=== PATIENT | female | born 1970 ===

== ENCOUNTER 2017-02-04 16:34 | Emergency (ER) | payer BC, OTHER ==
[2017-02-04 16:45] VITALS: BMI 33.3
--- NOTE | 2017-02-12 03:28 | OP ---
PROCEDURE DATE: 02/08/2017 PREOPERATIVE DIAGNOSES: 1. at term. 2. Previous section. 3. Gestational diabetes, on glyburide. 4. Multiparity and voluntary sterilization. 5. Known reassuring tracing. 6. Decreased movement. POSTOPERATIVE DIAGNOSES: 1. at term. 2. Previous section. 3. Gestational diabetes, on glyburide. 4. Multiparity and voluntary sterilization. 5. Known reassuring tracing. 6. Decreased movement. PROCEDURE PERFORMED: 1. Repeat low-transverse segment section. 2. Bilateral tubal sterilization using a modified [place] procedure. SURGEON: Adrian Jacome MD. ETHICS INSTRUCTOR: Dr. Miguel A Bowman, who was there for the entire duration of the case. Assistance needing in positioning the patient, open up the abdomen, delivery of the baby and closure of the abdomen. TYPE OF ANESTHESIA: Spinal by Dr. Alexander. FINDINGS: 1. Delivered a living baby boy, baby appears term, baby cries spontaneously, pediatrist in attendance. score of 9 and 9. 2. Amniotic fluid, clear. 3. Placenta complete and intact. 4. Both tubes and ovaries appeared grossly within normal limits to inspection bilaterally. 5. Collapsed cyst of Morgagni on the right side. 6. Bilateral tubal sterilization performed using modified Amrit procedure. ESTIMATED BLOOD LOSS: 500 mL. DRAINS USED: None. REPLACEMENTS USED: None. DESCRIPTION OF PROCEDURE: The patient was taken to the operating room and placed on the operating table in a supine position where an indwelling Fernandez catheter in the bladder draining clear fluid. At this time, spinal anesthesia was then induced and the patient was then replaced in a supine position. Venodyne boots were applied to both legs. The abdomen was then draped and prepped in the usual sterile manner. At this time, anesthesia was tested and found to be well secured, and an incision was then made using sharp dissection on the edges of the previous incision. Old scar was then removed and the incision was then extended to the subcutaneous tissue also using sharp dissection. Fascia was then identified and was then entered, and the incision of the fascia was then extended superiorly and inferiorly under direct visualization. Peritoneum was then identified and then slit at the midline and after being retracted superiorly using two Krissy clamps. Incision of the peritoneum was then extended superiorly and inferiorly under direct visualization. Bladder flap was then placed to retract the bladder inferiorly and the localized segment of the uterus was then identified. The visceral peritoneum covering this area was then entered using sharp dissection. Using blunt dissection, a bladder flap was then created and retracted inferiorly using the same bladder flap retractor. An incision was then made in the localized segment of the uterus for entering the uterine cavity. Clear fluid noted to be present. The incision was then extended laterally on each direction using bandage scissors. Using the manual scooping procedure, living baby boy was then delivered. The baby was immediately aspirated using the bulb suction. Umbilicus was then doubly clamped, cut and the baby handed to the pediatric personnel who was standing by. Samples of cord blood were then obtained and the placenta was then delivered complete and intact. The uterus was then exteriorized to provide better visualization. The uterine cavity was then thoroughly cleaned using moist lap pads and the uterine incision was then secured using multiple declamps. The uterine incision was then approximated using 0 Vicryl suture in a continuous interlocking manner. A second layer was also applied using 0 Vicryl suture in a continuous manner. Hemostasis was checked and found to be well secured. The bladder flap was then approximated using interrupted 2-0 Vicryl suture, all operative area checked, hemostatically secured. The patient was then asked after she had previously requested towards sterilization. Both tubes and ovaries have been grossly within normal limits to the infection. The patient consented again verbally. A small collapsed cyst of Morgagni noted to be present on the right side. The right fallopian tube was then grasped using Nelson clamp at the ampullary region and retracted superiorly. A 2-0 chromic was then passed through the mesosalpinx and the section of the tube was then ligated. A 2-0 chromic free tie was then placed underneath the ligature and the ligated segment of the tube was then resected and sent to pathology for appropriate pathological evaluation. The collapsed section of the tube had been ligated also and was resected and sent to pathology. The same procedure was then performed on the contralateral side without any complications. Following bilateral tubal sterilization, all operative areas checked, hemostatically secured and the free amniotic fluid and blood were evacuated from the pelvic cavity. Pelvic cavity was then irrigated using saline solution. Uterus then allowed to be tracked back into its original position. All operative area checked, hemostatically secured and the peritoneum was then closed using 0 Vicryl suture in a continuous manner. The fascia was then identified and was then closed using 0 PDS suture in a continuous manner. Fascia was then checked and found to be free of defect. Subcutaneous tissue was then irrigated using saline solution and approximated using 7 interrupted 2-0 plane sutures. Skin was then approximated using skin roxana. The patient tolerated the procedure well. There were no complications. Sponge, instrument, and needle count correct x3. Clear fluid noted to be present in the Fernandez bag. Adrian Jacome MD
== END 2017-02-04 17:21 | disposition home or self-care (01) ==
LOC: H.EROB2 16:34
DX: O24.419 Gestational diabetes mellitus in pregnancy, unspecified control (principal); O09.523 Supervision of elderly multigravida, third trimester; Z3A.37 37 weeks gestation of pregnancy

== ENCOUNTER 2017-02-08 07:36 | Inpatient (IN) | payer BC, OTHER ==
[2017-02-08] MEDS ORDERED: cefOXitin Sodium 1 GM in Sodium Chloride 0.9% 100 ML IVPB ONE (08:20)
[2017-02-08] MEDS ORDERED: Lactated Ringer's 1,000 ML IV SCH (08:20)
[2017-02-08 08:22] VITALS: BMI 32.3
[2017-02-08] MEDS: Lactated Ringer's 2,000 ML IV ONE ×2 (08:30→09:30)
[2017-02-08 10:01] LABS: BASO % 0.4 % (0.0-2.0); EOS # 0.1 K/uL (0.0-0.7); HEMOGLOBIN 10.9 g/dL (12.0-16.0); LYMPH # 1.5 K/uL (1.0-4.3); LYMPH % 15.6 % (20.0-40.0); MEAN CORPUSCULAR HEMOGLOBIN 31.5 pg (27.0-31.0); MEAN CORPUSCULAR HGB CONC 33.9 g/dL (33.0-37.0); MEAN PLATELET VOLUME 11.3 fl (7.2-11.7); MONO # 0.8 K/uL (0.0-0.8); MONO % 8.2 % (0.0-10.0); NEUT % 74.8 % (50.0-75.0); RBC 3.47 Mil/uL (3.80-5.20); RED CELL DISTRIBUTION WIDTH 14.7 % (11.5-14.5); WHITE BLOOD COUNT 9.4 K/uL (4.8-10.8)
--- NOTE | 2017-02-08 10:08 | OBADHP ---
Datetime: 02/08/2017 10:02 IP Chief Complaint Other: gest Dm on glyburide Prev C/S IP Adm Impression Other: UC/ gest DM Admit Comment, IP Provider: Admit to unit and prepare for Rc/S Extremities - PN: Normal Abdomen - PN: Abnormal Back - PN: Normal Breast - PN: Normal Lungs - PN: Normal Heart - PN: Normal Thyroid - PN: Normal Neurologic - PN: Normal General - PN: Normal FHR - Baseline A Provider: 140's Membranes, Provider: Intact Comments, ACOG Physical Exam: abd soft gravid fundus at term, old pfnest scar ext no calf tenderness Gestation - Est Wks by US: 37 + wks IP Chief Complaint: Uterine contractions; Decreased movement; Other NICHD Variability Prov Fetus A: Minimal - Undetectable to <5bpm NICHD Accel Fetus A IP Provider: 10X10 NICHD Decel Fetus A IP Provider: Late Genitourinary Exam: Normal DTRs - PN: Normal EGA AdmitDate IP: 37.4 IP Adm Impression: Term, intrauterine IP Admit Plan: Admit to unit; Initiate Section protocol Datetime: 02/04/2017 17:20 Pelvic Type - PN: Adequate HEENT - PN: Normal Vital Signs Provider: Within Normal Limits FHR Category Provider Fetus A: Category I Dilatation, Provider: 0 Effacement, Provider: 0 Station, Provider: -4
[2017-02-08] MEDS ORDERED: Oxytocin 30 units/LR 500ML 30 U/500 ML BAG IV ONE (10:27)
[2017-02-08] MEDS ORDERED: Morphine 1 mg/ml preservative-free Inj(Duramorph) ONE (10:37)
--- NOTE | 2017-02-08 12:34 | OBDS ---
DELIVERY PERSONNEL Delivery Doctor: Alexus Jacome MD Scrub Nurse: Becca Roxane OBT [place] Operator: Tommy Del Rosario RN Anesthesiologist: Pat Alexander MD MATERNAL INFORMATION Delivery Anesthesia: Spinal Medications in Delivery: pitocin 30u/500LR Estimated Blood Loss (ml): 800cc Placenta Cultured: No Maternal Complications: None Other Maternal Complications: gest DM on glyburide/decreased fm/ nonreasuring tracing Provider Comments: see dictated surgeons note LABOR SUMMARY EDC: 02/25/2017 00:00 LABOR INFORMATION Reason for Induction: Not Applicable STAGES OF LABOR Stage 3 hrs: 0 Stage 3 min: 1 VAGINAL DELIVERY Sponge Count Correct: Yes Sharps Count Correct: Yes Count Comment: count correct x3 CSECTION DELIVERY Primary Indication: Repeat Elective Other Primary Indication: decresed movement Secondary Indication: Nonreassuring Status CSection Urgency: Elective CSection Incidence: Repeat Labor: Labor Elective: Elective CSection Incision: Lower Uterine Transverse Sterilization Procedure: [place] Uterine Closure: Double-layer closure BABY A INFORMATION Delivery Date/Time: 02/08/2017 11:32 Method of Delivery: Born in Route : No : N/A Forceps: N/A Vacuum Extraction: N/A Shoulder Dystocia : No SHOULDER DYSTOCIA BABY A Delivery Date/Time: 02/08/2017 11:32 PRESENTATION/POSITION BABY A Presentation: Cephalic PLACENTA INFORMATION BABY A Placenta Delivery Time : 02/08/2017 11:33 SCORES BABY A Heart Rate 1 min: >100 bpm Resp Effort 1 min: Good Cry Reflex Irritability 1 min: Cough or Sneeze or Pulls Away Muscle Tone 1 min: Active Motion Color 1 min: Body [place], Extremities Blue SCORE 1 MIN: 9 Heart Rate 5 min: >100 bpm Resp Effort 5 min: Good Cry Reflex Irritability 5 min: Cough or Sneeze or Pulls Away Muscle Tone 5 min: Active Motion Color 5 min: Body [place], Extremities Blue SCORE 5 MIN: 9 INFANT INFORMATION BABY A Gestational Age at Delivery: 37.4 Gestational Status: Term Outcome : Liveborn Condition : Stable Sex: Male IDENTIFICATION/MEDS BABY A ID Band Number: [id number] ID Band Location: Left Leg; Left Arm WEIGHT/LENGTH BABY A Birthweight (gms): 3285 Infant Weight (lb): 7 Infant Weight (oz): 4 CORD INFORMATION BABY A No. Cord Vessels: 3 Nuchal Cord : Around Neck x1, Loose Cord Blood Taken: Yes Infant Suction: Mouth ASSESSMENT BABY A Complications: None Physical Findings at Delivery: Within Normal Limits Infant Respirations: Appears Normal Group Reservations Coordinator/ALS Called : No Infant Care By: Transferred To: Nursery
[2017-02-08] MEDS ORDERED: Naloxone 0.4 mg/ml Inj (Adult) IVP PRN (12:38)
[2017-02-08] MEDS ORDERED: DiphenhydrAMINE 50 mg/ml Inj IVP PRN (12:38)
[2017-02-08] MEDS ORDERED: DiphenhydrAMINE 50 mg/ml Inj IVP STA (15:48)
[2017-02-08] MEDS: cefOXitin Sodium 1 GM in Sodium Chloride 0.9% 100 ML IVPB SCH ×2 (19:28→19:29)
[2017-02-09] MEDS: cefOXitin Sodium 1 GM in Sodium Chloride 0.9% 100 ML IVPB SCH (00:58)
[2017-02-09] MEDS: Oxycodone/Acetaminophen 5/325 mg Tab PO PRN ×5 (02:25→20:12)
[2017-02-09 08:02] LABS: HEMOGLOBIN 9.9 g/dL (12.0-16.0); MEAN CELL VOLUME 93.4 fl (81.0-99.0); MEAN CORPUSCULAR HEMOGLOBIN 30.7 pg (27.0-31.0); MEAN CORPUSCULAR HGB CONC 32.9 g/dL (33.0-37.0); RBC 3.23 Mil/uL (3.80-5.20); RED CELL DISTRIBUTION WIDTH 14.6 % (11.5-14.5); WHITE BLOOD COUNT 12.1 K/uL (4.8-10.8)
[2017-02-09 08:27] LABS: BLOOD UREA NITROGEN 5 mg/dl (7-17); CALCIUM 8.3 mg/dL (8.4-10.2); GFR AFRICAN-AMERICAN > 60; GFR NON-AFRICAN AMERICAN > 60
--- NOTE | 2017-02-09 08:31 | OBPPN ---
Datetime: 02/09/2017 08:25 PP Pain Prov: Abnormal PP Nausea Prov: Denies PP Flatus Prov: Yes PP BM Prov: No PP Breasts Prov: Normal PP Heart Prov: Normal PP Lungs Prov: Normal PP Abdomen/Uterus Prov: Normal PP Lochia Prov: Normal PP Vulva/Perineum Prov: Normal PP CVA Tenderness Prov: Normal PP Extremities Prov: Normal PP C/S Incision Prov: Normal PP Progress Prov: Normal PP Impression Prov: Normal progression PP Plan Prov: Continue present management PP Progress Note Prov: stable pod1 no complaints dressing clean and dry dc campbell oob with assistance advance diet as tolerated IP PP Procedures: None
[2017-02-09] MEDS ORDERED: cefOXitin Sodium 1 GM in Sodium Chloride 0.9% 100 ML IVPB ONE (09:00)
[2017-02-10] MEDS: Oxycodone/Acetaminophen 5/325 mg Tab PO PRN ×5 (00:15→22:11)
--- NOTE | 2017-02-10 10:11 | OBPPN ---
Datetime: 02/10/2017 10:03 PP Pain Prov: Within normal limits PP Pain Prov comment: No SOB, chest pains or leg pains PP Nausea Prov: Denies PP BM Prov: No PP Breasts Prov: Normal PP Lungs Prov: Normal PP Abdomen/Uterus Prov: Abnormal PP Lochia Prov: Normal PP Vulva/Perineum Prov: Normal PP CVA Tenderness Prov: Normal PP Extremities Prov: Normal PP C/S Incision Prov: Normal PP Progress Prov: Normal PP Comments Phys Exam Prov: breast not engorged ND fundus below the umb. Incision clean and dry no suppt or discharge Ext no calf tenderness no leg edema PP Impression Prov: Normal progression PP Plan Prov: Continue present management PP Progress Note Prov: CBC stable will give Dulcolax suppt and continue PO care OOB and ambulation C ontinue sugar monitoring IP PP Procedures: None
[2017-02-10] MEDS: Simethicone 80 mg Chewtab PO SCH ×2 (16:11→22:06)
[2017-02-10] MEDS ORDERED: Lactated Ringer's 1,000 ML IV SCH (17:30)
[2017-02-10 18:27] LABS: BASO # 0.1 K/uL (0.0-0.2); BASO % 0.6 % (0.0-2.0); EOS # 0.1 K/uL (0.0-0.7); EOS % 0.6 % (0.0-4.0); HEMOGLOBIN 11.1 g/dL (12.0-16.0); LYMPH # 0.8 K/uL (1.0-4.3); LYMPH % 5.6 % (20.0-40.0); MEAN CELL VOLUME 92.9 fl (81.0-99.0); MEAN CORPUSCULAR HEMOGLOBIN 31.5 pg (27.0-31.0); MEAN CORPUSCULAR HGB CONC 33.9 g/dL (33.0-37.0); MEAN PLATELET VOLUME 9.9 fl (7.2-11.7); MONO # 0.7 K/uL (0.0-0.8); MONO % 4.7 % (0.0-10.0); NEUT # 12.3 K/uL (1.8-7.0); NEUT % 88.5 % (50.0-75.0); PLATELET COUNT 255 K/uL (130-400); RBC 3.51 Mil/uL (3.80-5.20); RED CELL DISTRIBUTION WIDTH 14.7 % (11.5-14.5); WHITE BLOOD COUNT 13.9 K/uL (4.8-10.8)
[2017-02-10 18:50] LABS: ALBUMIN 3.5 g/dL (3.5-5.0); ALT/SGPT 38 U/L (9-52); AST/SGOT 36 U/L (14-36); BLOOD UREA NITROGEN 6 mg/dl (7-17); CALCIUM 9.2 mg/dL (8.4-10.2); EOSINOPHIL 1 % (0-7); GFR AFRICAN-AMERICAN > 60; GFR NON-AFRICAN AMERICAN > 60; LYMPHOCYTE 5 % (20-50); MONOCYTE 5 % (0-10); NEUTROPHIL 89 % (42-75); PLATELET ESTIMATE NORMAL (NORMAL); TOTAL CELLS COUNTED 100
[2017-02-10 18:51] LABS: ANISOCYTOSIS SLIGHT
[2017-02-11] MEDS: Simethicone 80 mg Chewtab PO SCH ×4 (04:05→16:48)
--- NOTE | 2017-02-11 07:38 | OBPPN ---
Datetime: 02/11/2017 07:30 PP Pain Prov: Within normal limits PP Pain Prov comment: No SOB, chest pains or leg pains PP Nausea Prov: Denies PP Flatus Prov: Yes PP BM Prov: Yes PP Breasts Prov: Normal PP Lungs Prov: Normal PP Abdomen/Uterus Prov: Abnormal PP Lochia Prov: Normal PP Vulva/Perineum Prov: Normal PP CVA Tenderness Prov: Normal PP Extremities Prov: Normal PP C/S Incision Prov: Normal PP Progress Prov: Normal PP Comments Phys Exam Prov: breast Not engorged, NT Abd soft not distended no rebound depressible fu ndus below the umb firm, incision clean nd dry roxana in place no sign of infection Ext no edema or calf tenderness PP Impression Prov: Normal progression PP Plan Prov: Continue present management PP Impression Other Prov: hyperemesis but improved PP Progress Note Prov: no further vomiting and had 2 bm last night and this am and feels much better Continue po care and see how tolerates diet today IP PP Procedures: None Vital Signs Provider PP: Reviewed
--- NOTE | 2017-02-11 10:45 | OBHP ---
Datetime: 02/08/2017 10:02 IP Adm Impression: Term, intrauterine IP Chief Complaint Other: gest Dm on glyburide Prev C/S IP Adm Impression Other: UC/ gest DM IP Admit Plan: Admit to unit; Initiate Section protocol Admit Comment, IP Provider: Admit to unit and prepare for Rc/S Extremities - PN: Normal Abdomen - PN: Abnormal Back - PN: Normal Breast - PN: Normal Lungs - PN: Normal Heart - PN: Normal Thyroid - PN: Normal Neurologic - PN: Normal General - PN: Normal FHR - Baseline A Provider: 140's Membranes, Provider: Intact Comments, ACOG Physical Exam: abd soft gravid fundus at term, old pfnest scar ext no calf tenderness Gestation - Est Wks by US: 37 + wks EGA AdmitDate IP: 37.4 IP Indication for Induction: Maternal Diabetes; Other IP Indication for Induction Oth: prev C/s IP Chief Complaint: Uterine contractions; Decreased movement; Other NICHD Variability Prov Fetus A: Minimal - Undetectable to <5bpm NICHD Accel Fetus A IP Provider: 10X10 NICHD Decel Fetus A IP Provider: Late Genitourinary Exam: Normal DTRs - PN: Normal Datetime: 02/04/2017 17:20 Pelvic Type - PN: Adequate HEENT - PN: Normal Vital Signs Provider: Within Normal Limits FHR Category Provider Fetus A: Category I Dilatation, Provider: 0 Effacement, Provider: 0 Station, Provider: -4
--- NOTE | 2017-02-11 17:10 | OBDCSUM ---
Datetime: 02/11/2017 17:08 Discharged to, Provider: Home Follow up at, Provider: Dr Jacome Disch Instr Activity: Bedrest; May be up to bathroom; May be up for meals; May Shower Disch Instr Diet: Regular Discharge Instructions, Provider: Routine instructions given Discharge Diagnosis, Provider: Term Delivered Follow up in weeks, Provider: 1 wk Disch Referrals: None Disch Activity Restrictions: No exercising; No lifting; No driving; Minimize walking; Minimize stair -climbing; No sexual activity; Nothing in vagina - [place], tampons, douche Discharge Comment, Provider: continue po care and sugar monitoring Contraception after Delivery: Tubal Ligation Datetime: 02/04/2017 17:17 Discharge Diagnosis, Provider: Term Delivered Discharge Time: 02/11/2017 17:21
== END 2017-02-11 18:15 | disposition home or self-care (01) | DRG 766 ==
LOC: H.EROB2 07:36 → H.L&D 08:20 → H.OB/GYN 17:01
PROVIDERS: ADMIT Specialist; ATTEND Specialist
PROC: 10D00Z1 Extraction of Products of Conception, Low, Open Approach (ICD-10-PCS; principal; 2017-02-08)
PROC: 0UL70ZZ Occlusion of Bilateral Fallopian Tubes, Open Approach (ICD-10-PCS; 2017-02-08)
PROC: 4A1HXCZ Monitoring of Products of Conception, Cardiac Rate, External Approach (ICD-10-PCS; 2017-02-08)
DX: O24.425 Gestational diabetes mellitus in childbirth, controlled by oral hypoglycemic drugs (principal); O36.8130 Decreased fetal movements, third trimester, not applicable or unspecified; O34.211 Maternal care for low transverse scar from previous cesarean delivery; O09.523 Supervision of elderly multigravida, third trimester; O69.81X0 Labor and delivery complicated by cord around neck, without compression, not applicable or unspecified; Z3A.37 37 weeks gestation of pregnancy; Z37.0 Single live birth; Z30.2 Encounter for sterilization